=== PATIENT | female | born 1980 | race Caucasian/White ===

== ENCOUNTER 2020-04-05 14:18 | Emergency (ER) | payer MEDICAID ==
[~2020-04-05] VITALS: Ht 167.6 cm; Wt 147.4 kg
[~2020-04-05 14:18] MED LIST: IBU800T
[2020-04-05 14:29] VITALS: BP 152/93
== END 2020-04-05 16:53 | disposition left against medical advice (07) ==
LOC: ER 14:18
DX: R11.2 Nausea with vomiting, unspecified (principal); Z53.21 Procedure and treatment not carried out due to patient leaving prior to being seen by health care provider

== ENCOUNTER 2021-09-07 03:43 | Emergency (ER) | payer MEDICAID ==
[~2021-09-07] VITALS: Ht 167.6 cm; Wt 130.2 kg
[2021-09-07 03:44] VITALS: BP 148/86
== END 2021-09-07 04:17 | disposition left against medical advice (07) ==
LOC: ER 03:43
DX: K08.89 Other specified disorders of teeth and supporting structures (principal); Z53.21 Procedure and treatment not carried out due to patient leaving prior to being seen by health care provider

== ENCOUNTER 2022-04-18 13:56 | Emergency (ER) | payer MEDICAID ==
[~2022-04-18] VITALS: Ht 167.6 cm; Wt 120.7 kg
[2022-04-18 13:59] VITALS: BP 140/81
[2022-04-18] MEDS ORDERED: GABAPENTIN 300 MG CAP PO ONE (18:00)
[2022-04-18] MEDS ORDERED: TIZA4CAP7 PO (20:21)
== END 2022-04-18 20:55 | disposition home or self-care (01) ==
LOC: ER 14:02
DX: M54.16 Radiculopathy, lumbar region (principal); Z79.1 Long term (current) use of non-steroidal anti-inflammatories (NSAID)
CPT/HCPCS: 36415; 72131; 84702

== ENCOUNTER → 2024-08-22 | Day surgery (SDC) | payer SELFPAY ==
[2024-08-21 14:09] LABS: Urine Bacteria None Seen /hpf (None Seen)
[2024-08-21 14:56] LABS: Basophils # (auto) 0 10 ^3/uL (0-0.2); Basophils % (auto) 0.2 % (0.0-2.0); Eosinophils # (auto) 0.1 10 ^3/uL (0-0.8); Eosinophils % (auto) 1.5 % (0.0-7.0); Hematocrit 39.9 % (36.0-46.0); Hemoglobin 13.9 g/dL (12.2-16.2); Lymphocytes # (auto) 2.3 10 ^3/uL (0.4-5.4); Lymphocytes % (auto) 23.7 % (10.0-50.0); Mean Corpuscular Hemoglobin 30.6 pg (28.0-32.0); Mean Corpuscular Hgb Conc. 34.7 g/dL (32.0-36.0); Mean Corpuscular Volume 88.3 fL (80.0-100.0); Monocytes # (auto) 0.5 10 ^3/uL (0-1.3); Monocytes % (auto) 4.9 % (0.0-12.0); Neutrophils # (auto) 6.9 10 ^3/uL (1.6-8.6); Neutrophils % (auto) 69.7 % (37.0-80.0); Platelet Count (auto) 335 10^3/uL (140-450); Red Blood Cells 4.52 10^6/uL (4.0-5.20); White Blood Cell 9.9 10^3/uL (4.4-10.8)
[2024-08-21 15:12] LABS: Alanine Aminotransferase 21 U/L (7-40); Albumin 4.4 g/dL (3.2-4.8); Alkaline Phosphatase 61 U/L (46-116); Anion Gap 7 (5-15); Aspartate Aminotransferase 18 U/L (13-40); BUN/Creatinine Ratio 14.7 (10.0-20.0); Blood Urea Nitrogen 11 mg/dL (9-23); Calcium 9.3 mg/dL (8.7-10.4); Carbon Dioxide 27 mmol/L (20-31); Chloride 104 mmol/L (98-107); Glucose 87 mg/dL (74-106); Sodium 138 mmol/L (136-145)
[2024-08-21 15:14] LABS: Bilirubin, Total 0.5 mg/dL (0.2-1.0); Total Protein 7.3 g/dL (5.7-8.2)
[2024-08-21 15:19] LABS: Urine Blood 1+ /uL (Negative); Urine Clarity Turbid (Clear); Urine Color Light-Yellow (Yellow); Urine Mucus FEW (None Seen); Urine Protein, UAD Negative (Negative); Urine Urobilinogen Normal (Negative); Urine WBC 8 /hpf (0 - 5); Urine pH 5.5 (5.0-9.0)
[2024-08-21 15:24] LABS: INR 0.99 (0.9-1.15); Partial Thromboplastin Time 30.2 SEC (24.5-34.5); Prothrombin Time 10.5 sec (9.3-11.8)
[~2024-08-22] VITALS: Ht 167.6 cm; Wt 124.7 kg
[~2024-08-22] MED LIST changes: +CETI10TA2 PO; +DexAMETHasone SOD PHOS 10MG/1ML VIAL INJ ONE; +HYDR-4072 PO; +KETAMINE 50mg/ML 1ml syringe ONE; +MEPERIDINE HCL (25 MG/ML) 1ML VIAL ONE; +MIDAZOLAM HCL 2MG/2ML 2ml VIAL (1mg/ml) ONE; +PROPOFOL 10 MG/ML 20 ML IV ONE; +fentaNYL CITRATE 100 MCG/2 ML VL ONE
[2024-08-22 10:55] VITALS: TEMP 97.7
[2024-08-22 13:02] VITALS: PULSE 79; RESP 19; O2SAT 100
[2024-08-22 13:25] VITALS: BP 124/73; PULSE 71; RESP 20; O2SAT 97
== END | disposition home or self-care (01) ==
LOC: GI 09:25
PROVIDERS: ATTEND Internal Medicine Gastroenterology
DX: K92.1 Melena (principal); K64.8 Other hemorrhoids; G43.909 Migraine, unspecified, not intractable, without status migrainosus; E66.01 Morbid (severe) obesity due to excess calories; G89.29 Other chronic pain; Z90.49 Acquired absence of other specified parts of digestive tract; Z98.891 History of uterine scar from previous surgery; Z68.43 Body mass index [BMI] 50.0-59.9, adult; Z86.19 Personal history of other infectious and parasitic diseases; Z68.41 Body mass index [BMI] 40.0-44.9, adult
CPT/HCPCS: 36415; 45378; 80053; 81001; 84702; 85025; 85610; 85730; J1100; J2175; J2250; J2704; J3010; J7030

== ENCOUNTER 2025-09-07 20:08 | Emergency (ER) | payer SELFPAY ==
[~2025-09-07] VITALS: Ht 167.6 cm; Wt 125.4 kg
[~2025-09-07 20:08] MED LIST changes: -DexAMETHasone SOD PHOS 10MG/1ML VIAL INJ ONE; -KETAMINE 50mg/ML 1ml syringe ONE; -MEPERIDINE HCL (25 MG/ML) 1ML VIAL ONE; -MIDAZOLAM HCL 2MG/2ML 2ml VIAL (1mg/ml) ONE; -PROPOFOL 10 MG/ML 20 ML IV ONE; -fentaNYL CITRATE 100 MCG/2 ML VL ONE
[2025-09-07 20:10] VITALS: BP 155/87; PULSE 93; RESP 16; TEMP 98.3; O2SAT 98
== END 2025-09-07 23:09 | disposition left against medical advice (07) ==
LOC: ER 20:08
DX: K62.89 Other specified diseases of anus and rectum (principal); Z53.21 Procedure and treatment not carried out due to patient leaving prior to being seen by health care provider